=== PATIENT | male | born 1950 | race Caucasian/White ===

== ENCOUNTER 2020-04-24 14:12 | Inpatient (IN) | payer OTHER ==
[~2020-04-24] VITALS: Ht 188 cm; Wt 111.1 kg
[2020-04-24 14:13] VITALS: BP 95/49
[2020-04-24 15:45] LABS: ABSOLUTE NEUTROPHILS 9.5 thou/uL (1.4-8.2); BASOPHILS 0.4 % (0.0-2.0); EOSINOPHILS 0.1 % (0.0-3.0); HEMATOCRIT 41.6 % (42.0-52.0); HEMOGLOBIN 13.8 gm/dL (14.0-18.0); LYMPHOCYTES 5.3 % (24.0-44.0); MCH 30.2 pg (26.0-34.0); MCHC 33.2 g/dL (28.0-37.0); MCV 90.9 fL (80.0-100.0); MONOCYTES 7.1 % (1.0-8.0); PLATELET COUNT 167 thou/uL (150-400); POLYS 87.1 % (36.0-66.0); RBC 4.58 mil/uL (4.50-6.00); RDW 14.3 % (10.5-14.5); WBC 10.9 thou/uL (4.0-11.0)
[2020-04-24 16:07] LABS: CALCIUM 9.3 mg/dL (8.5-10.1); CREATININE 1.6 mg/dL (0.7-1.3)
[2020-04-24 16:11] LABS: ALBUMIN 3.4 g/dL (3.4-5.0); DIRECT BILIRUBIN 0.3 mg/dL (<0.1-0.2); TOTAL BILIRUBIN 1.1 mg/dL (0.2-1.0); TOTAL PROTEIN 6.8 g/dL (6.4-8.2)
[2020-04-24 17:06] LABS: URINE BILIRUBIN NEGATIVE (Negative); URINE BLOOD TRACE (Negative); URINE CLARITY CLEAR; URINE COLOR YELLOW; URINE GLUCOSE-RANDOM* 3+ (Negative); URINE KETONES NEGATIVE (Negative); URINE LEUKOCYTES-REFLEX NEGATIVE (Negative); URINE NITRITE-REFLEX NEGATIVE (Negative); URINE PROTEIN (DIPSTICK) 2+ (Negative)
[2020-04-24 17:20] LABS: BACTERIA-REFLEX 1-9 Few /HPF (None Seen); CASTS None Seen /LPF (None Seen); CRYSTALS None Seen /LPF (None Seen); SQUAMOUS None Seen /LPF (0-3); URINE RBC 0-2 Rare /HPF (0-2); URINE WBC-REFLEX None Seen /HPF (0-5)
[2020-04-24] MEDS ORDERED: ALLOPURINOL 30300 M1 PO (17:43)
[2020-04-24] MEDS ORDERED: EZETIMIBE10 MG PO (17:43)
[2020-04-24] MEDS ORDERED: GLIMEPIRIDE4 MG PO (17:44)
[2020-04-24] MEDS ORDERED: LIPITOR80 MG PO (17:45)
[2020-04-24] MEDS ORDERED: METFORMIN HCL500 M3 PO (17:45)
[2020-04-24] MEDS ORDERED: PROBENECID500 MG PO (17:46)
[2020-04-24] MEDS ORDERED: INVOKANA100 MG PO (17:46)
[2020-04-24] MEDS ORDERED: PLAVIX 75 MG TA75 MG PO (17:47)
[2020-04-24] MEDS ORDERED: SYMBICORT160 MCG/4. INH (17:48)
[2020-04-24] MEDS ORDERED: BYSTOLIC10 MG PO (17:48)
[2020-04-24] MEDS ORDERED: ENTRESTO 49 MG1 EACH PO (17:48)
[2020-04-24 17:57] VITALS: BP 97/50
[2020-04-24 18:07] LABS: FOLIC ACID 18.6 ng/mL (8.6-58.9)
[2020-04-24 18:41] VITALS: BP 116/48
[2020-04-24 19:47] VITALS: BP 108/62
--- NOTE | 2020-04-24 20:27 | NUR ---
Patient arrived in the unit at 1840, report given to Night RN. Vital signs stable. To do admission education, assessment and history; admission forms to be signed as well as consults to be done. Pt to be on telemetry; night RN informed.
--- NOTE | 2020-04-25 07:17 | NUR ---
VSS-AFEBRILE. LUNGS CLEAR-ROOM AIR. C/O PAIN WITH THIRD TOE ON LEFT FOOT, WELL RELIEVED WITH PO PAIN MEDICATION. THIRD TOE ON LEFT FOOT IS BLACK, AND FRONT OF FOOT IS RED AND WARM TO TOUCH. OOB AD DANN-STEADY ON FEET. APPEARS TO HAVE PERIODS WHERE HE IS A-PACED, BUT DENIES HAVING A PACEMAKER, AND STATES HE ONLY HAS A DEFIBRILLATOR. CALLS APPROPRIATLEY FOR ANY NEEDED ASSISTANCE.
[2020-04-25 08:15] VITALS: BP 117/62
[2020-04-25 10:00] LABS: ABSOLUTE NEUTROPHILS 6.9 thou/uL (1.4-8.2); BASOPHILS 0.4 % (0.0-2.0); EOSINOPHILS 0.7 % (0.0-3.0); HEMATOCRIT 46.7 % (42.0-52.0); MCH 29.7 pg (26.0-34.0); MCHC 32.2 g/dL (28.0-37.0); MCV 92.2 fL (80.0-100.0); MONOCYTES 6.6 % (1.0-8.0); PLATELET COUNT 191 thou/uL (150-400); POLYS 83.3 % (36.0-66.0); RBC 5.07 mil/uL (4.50-6.00); RDW 14.5 % (10.5-14.5); WBC 8.2 thou/uL (4.0-11.0)
[2020-04-25 10:16] LABS: CALCIUM 9.3 mg/dL (8.5-10.1); CREATININE 1.2 mg/dL (0.7-1.3); POTASSIUM 3.9 mmol/L (3.5-5.1)
[2020-04-25 10:17] LABS: MAGNESIUM 2.1 mg/dL (1.8-2.4)
--- NOTE | 2020-04-25 11:42 | HC ---
[facility] [place] [address] [address] CONSULTATION Name: LAURYN NY Room #: 458-P ADM IN M.R.#: [id number] Admission: 04/24/20 Attend Phys: Yordy Ledesma MD Discharge: Date of : 50 Report #: [id number] THIS REPORT FOR: cc: Ethan Thompson MD, Rene P. MD Barry, Joseph W. MD ~ DATE OF SERVICE: 04/25/2020 INFECTIOUS DISEASE CONSULTATION ATTENDING PHYSICIAN: Dr. Ledesma. REASON FOR EVALUATION: Diabetic foot infection with gangrene involving the third left toe. HISTORY OF SUBJECTIVE: Chart reviewed, patient examined. This is a 70-year-old gentleman with known diabetes mellitus type 2 complicated by peripheral neuropathy, although he does have feeling, had developed a bullous lesion over the dorsal aspect of his toe. He dates early part of April. He noted he had intermittent bleeding. He was ultimately evaluated, having obtained a primary care physician and then subsequently referred to Wound Care. He was encouraged to go to the Emergency Room and was subsequently admitted. Denies any systemic illness of fever or chills. Appetite has been satisfactory. No pulmonary or gastrointestinal related complaints. Evaluation noted elevated CRP of 94.4. Arterial Doppler noted no hemodynamically significant stenosis in the femoral or popliteal arteries. Lactic acid 2.7. COVID test was negative. Chest x-ray was remarkable only for scarring. He was empirically started on therapy with ceftriaxone and vancomycin. MRI of the foot is pending. ALLERGIES: LISTED TO SHELLFISH. CURRENT MEDICATIONS: Include cyanocobalamin, glimepiride, allopurinol, labetalol, atorvastatin, clopidogrel, pantoprazole, ceftriaxone, enoxaparin, vancomycin, topical gentamicin, p.r.n. analgesics and antiemetics. SOCIAL HISTORY: Nonsmoker, no ethanol, no illicit drug use. FAMILY HISTORY: Noncontributory. REVIEW OF SYSTEMS: Otherwise, unremarkable 10-point review of systems. PHYSICAL EXAMINATION: GENERAL: He is alert, cooperative, appropriate, reasonably well nourished, not overtly distressed. VITAL SIGNS: Most recent temperature 99.5, pulse 68, respirations 18, blood [facility] [address] [place] [address] CONSULTATION Name: LAURYN NY Room #: 458-P [facility] IN [facility].#: [id number] Admission: 04/24/20 Attend Phys: Yordy Ledesma MD Discharge: Date of : 50 Report #: [id number] pressure 108/62. SKIN: Warm, dry, no rashes. HEENT: Otherwise unremarkable. Normocephalic. Extraocular muscles intact. NECK: Supple. LUNGS: Otherwise clear breath sounds. HEART: Regular. I do not appreciate a murmur. ABDOMEN: Soft, nontender, nondistended. EXTREMITIES: Left foot third toe has gangrenous changes noted in particular over the dorsal aspect. There is some moderate degree of surface inflammation signs noted over the dorsal foot. GENITOURINARY AND RECTAL: Deferred. LABORATORY DATA: Most recent lactic acid 1.6. Urinalysis unremarkable. Sed rate of 33. Electrolytes: Sodium 138, potassium 4.0, chloride 104, bicarbonate 25, BUN and creatinine 24 and 1.6, glucose of 159. Albumin of 3.4. Total protein 6.4. LFTs unremarkable. ASSESSMENT: Left third toe gangrene. The patient with diabetes mellitus, likely has some degree of vasculopathy. We will continue empiric therapy. I think it is reasonable coverage. At this point, there is no particular odor would still favor Staph or strep etiology in the setting noted evaluation ongoing including MRI, which is pending. We will monitor expectantly. Add incentive spirometry. Continue wound care as prescribed. <ELECTRONICALLY SIGNED> By: Blade Hayward MD 04/25/20 1142 0841 1111 Blade Hayward MD /nt
--- NOTE | 2020-04-25 17:29 | NUR ---
PT ASSESSED AT START OF SHIFT. DRSIvone IN THIS AM. DR. ANN REDRESSED LT FOOT. PLAN ON AMPUTATING LT 2ND TOE IN THE AM. PT IN AGREEMENT. NO LOVENOX THIS EVENING BUT TO RESUME TOMORROW EVENING. MRI TO BE DONE MONDAY NOT EMERGENCY. NO C/O PAIN. EATING AND DRINKING WELL. VOIDING PER URINAL.
[2020-04-25 19:24] VITALS: BP 123/70
[2020-04-26 06:06] LABS: ALBUMIN 2.8 g/dL (3.4-5.0); CALCIUM 8.9 mg/dL (8.5-10.1); CREATININE 0.9 mg/dL (0.7-1.3); PHOSPHORUS 3.3 mg/dL (2.6-4.7); POTASSIUM 3.7 mmol/L (3.5-5.1)
--- NOTE | 2020-04-26 06:22 | NUR ---
Pt. rested quietly during the night when checked on during frequent rounds. He did c/o right lower extremity pain and po pain med given (see emar) with some relief noted. He has been useing the urinal.
[2020-04-26 07:42] VITALS: BP 138/70
[2020-04-26 15:38] VITALS: BP 110/55
--- NOTE | 2020-04-26 19:56 | NUR ---
Assumed care of pt. at 0700. Pt. was calm and cooperative. Pt. was taken down for surgery at 0745. Pt. returned from surgery with stable vitals and no pain complaints. Wound dressing C/D/I. Pt. remains stable with no complaints of pain.
[2020-04-26 20:09] VITALS: BP 114/54
[2020-04-27 04:59] VITALS: BP 122/58
--- NOTE | 2020-04-27 05:07 | NUR ---
Pt. rested quietly at intervals during the night when checked on during frequent rounds. He did c/o pain to his left foot and po pain med given (see emar) with some relief of pain noted. Dressing to left foot is dry and intact.
--- NOTE | 2020-04-27 07:56 | HC ---
[facility] [place] [address] [place] [address] CONSULTATION Name: LAURYN NY Room #: 458-P ADM IN M.R.#: [id number] Admission: 04/24/20 Attend Phys: Yordy Ledesma MD Discharge: Date of : 50 Report #: [id number] THIS REPORT FOR: cc: Ethan Thompson MD, Rene P. MD Althoff,Dustin Heredia MD ~ DATE OF SERVICE: 04/25/2020 CHIEF COMPLAINT: Necrotic left third toe and cellulitis. HISTORY OF PRESENT ILLNESS: This is a 70-year-old male patient who I saw in the clinic on the , he had been referred by Dr. Ethan Thompson after an initial examination by Dr. Thompson's office. He has had chronic ulceration to the left third toe. It has progressed to being more necrotic and has developed cellulitis. I recommended admission. He came in later in the evening for such through the Emergency Department. He denies significant pain. He is mainly concerned with caring for his who has glioblastoma multiforme and he is the primary caregiver for. He does understand the need for surgical intervention. PAST MEDICAL HISTORY: Positive for history of diabetes mellitus and congestive heart failure. MEDICATIONS: Include allopurinol, Azactam, glimepiride, atorvastatin, metformin, probenecid, Invokana, Plavix, Entresto, Bystolic, Symbicort. ALLERGIES: SHELLFISH. SOCIAL HISTORY: Negative for alcohol or tobacco use. FAMILY HISTORY: Noncontributory. REVIEW OF SYSTEMS: CONSTITUTIONAL: The patient denies fever, chills, or weight loss. NEUROLOGICAL: The patient denies focal weakness, numbness or tingling. EYES: The patient denies visual changes, redness, or drainage. ENT: The patient denies earache, nasal drainage or sore throat. CARDIOVASCULAR: The patient denies chest pain, palpitations or diaphoresis. PULMONARY: The patient denies cough or shortness of breath. GASTROINTESTINAL: The patient denies abdominal pain. ORTHOPEDIC: The patient notes the ulceration on the left third toe as well as the redness on his left foot. Other systems in a 14-point review of systems are negative. PHYSICAL EXAMINATION: VITAL SIGNS: At this time include temperature 36.6, pulse 59, respiratory rate [facility] [address] [place] [address] CONSULTATION Name: LAURYN NY Room #: [address] [place] [address] IN M.R.#: [id number] Admission: 04/24/20 Attend Phys: Yordy Ledesma MD Discharge: Date of : 50 Report #: [id number], blood pressure 117/62. GENERAL: This is a chronically ill-appearing male patient who appears to be in minimal distress. HEENT: Head normocephalic. Nose and throat are clear. NECK: Supple. LUNGS: Clear. HEART: Regular. ABDOMEN: Bowel sounds present. EXTREMITIES: Demonstrate necrosis and dry gangrene to the tip of the left third toe. There is a proximal ulcer on the dorsal aspect of the third toe. It is cellulitic and cellulitis extends to the majority of the dorsal aspect of the left foot. Distal pulses are diminished. NEUROLOGIC: The patient is alert and oriented and appropriate. LABORATORY DATA: Include sodium 141, potassium 3.9, chloride 102, CO2 of 28, BUN 17, creatinine 1.2, glucose 116. White blood cell count 8.2 with hemoglobin 15.0. Arterial Dopplers demonstrated an occluded anterior tibial artery on the left side, otherwise good flow. CLINICAL IMPRESSION: 1. Gangrenous and ulcerated left third toe. 2. Type 2 diabetes mellitus. 3. Cellulitis to the dorsal aspect of left foot. 4. Diabetic peripheral neuropathy. 5. Peripheral arterial disease by Doppler and physical examination. RECOMMENDATIONS: At this point in time, we reviewed the Doppler findings with Dr. Ma who feels the patient should have adequate blood flow for healing and no intervention for revascularization would be required. Discussed this with Dr. Norberto Delcid who has seen the patient as well. We will plan for amputation of the third toe. He will receive intravenous antibiotic therapy. Continue with local wound care. In the meantime, I appreciate being asked to see him in consultation. <ELECTRONICALLY SIGNED> By: Dustin Leroy MD 04/27/20 0756 1636 2131 Dustin Leroy MD /nt
[2020-04-27 08:17] VITALS: BP 118/57
[2020-04-27] MEDS ORDERED: KEFLEX500 M1 PO (09:20)
[2020-04-27] MEDS ORDERED: HYDROCODON-ACE1 EAC7 PO (09:20)
--- NOTE | 2020-04-27 14:37 | NUR ---
PT ADMITTED RELATED TO LEFT FOOT, THIRD TOE INFECTION. CM REVIEWED CHART AND SPOKE WITH CARE TEAM. CM CALLED AND SPOKE WITH PT OVER THE PHONE THIS DAY. PT INDICATED HE RESIDES AT HOME AND THAT HE HAD BEEN PROVIDING CARE TO HIS WHO IS ILL DETECTIVE PRECINCT. HE INDICATED THAT HIS SPOUSE HAD SERVICES THROUGH [facility]. HE WAS AWARE THAT HE WOULD LIKELY NEED HH SERVICES [place] AND WANTED TO SEE IF HE COULD USE THEM TOO. CM CALLED [facility] AT AND SPOKE WITH [employer] AND THEY INDICATED THEY AREN'T A MEDICARE PROVIDER FOR HH SERVICES. CM TO NOTIFY PT. AWAITING DIRECTION IF PT WILL NEED HOME IV ABX. CM TO FOLLOW INDICATED WITH [place] PLANNING.
--- NOTE | 2020-04-27 19:43 | NUR ---
PT A&OX4, VSS, DENIES PAIN. IV PATENT RIGHT FOREARM. PATIENT TOLERATING DIET. PATIENT STEADY ON FEET, 50%WEIGHT BEARING LEFT FOOT. DRESSING CHANGE COMPLETED BY DOCTOR. DOCTOR TITA GAVE VERBAL ORDER FOR POST OP SHOE. MRI DENIED TODAY. NO SIGNS OF DISTRESS. WILL CONTINUE TO MONITOR.
[2020-04-27 20:04] VITALS: BP 119/60
--- NOTE | 2020-04-28 07:01 | NUR ---
Pt. rested quietly at intervals during the night when checked on during frequent rounds. He did c/o pain to his left lower extremity and po pain med given (see emar) with some relief noted. Dressing to left lower ex- tremity is dry and intact.
[2020-04-28 09:25] VITALS: BP 139/65
[2020-04-28] MEDS ORDERED: ZYVOX600 MG PO (11:39)
--- NOTE | 2020-04-28 12:19 | NUR ---
CM CALLED AND SPOKE WITH PT THIS AM. HE WAS AWARE THAT [facility] DOESN'T PROVIDE HH SERVICES. HE WAS RECEPTIVE TO CM SENDING REFERRAL TO PROVIDERS THAT GO TO THE SERVICE ARE HE WILL BE GOIGN TO UPON [place]. PT INDICATED HE WILL BE GOING TO STAY AT HIS DTR'S FARM IN [place], [place] [address] [place] [address]. CM SEARCHED PROVIDERS IN [place] [address]. [facility], [facility], AND [facility] CAME UP. [facility] INDICATED THEY WERE CLOSED IN THAT AREA. [facility] INDICATED THEY DIDN'T GO THERE, AND [facility] INDICATED THEY WERE PRETTY FULL AND DIDN'T THINK THEY WOULD BE ABLE TO STAFF HIM. CM CALLED A BUNCH OF OTHER PROVIERS AND NONE WENT TO SERVICE AREA. CM CALLED [facility] BACK AND ASKED FOR THEM TO PLEASE REVIEW REFERRAL. CM FAXED TO THEM. PT WAS ISSUED A FWW BY PROVIDER [facility], WE ARE AWAITING A POST OP SHOE FROM . TP WAS SWITCHED TO [facility]. CM TO CONTINEU TO TRY TO FIND HH FOR [place] THIS DAY. CM TO FOLLOW INDICATED WITH [place] PLANNING.
[2020-04-28 12:45] VITALS: BP 139/65
[2020-04-28 13:34] VITALS: BP 139/65
--- NOTE | 2020-04-28 14:06 | NUR ---
CM HEARD BACK FROM INTAKE AT [facility] AND THEY INDICATED THAT THEY CAN ACCEPT PT FOR SERVICES AND THAT THEY WILL DO A SOC MONDAY. CM NOTIFIED PT. HE IS AWARE AND AGREEABLE. CM CALLED AND SPOKE WITH PT'S DTR SHE INDICATED UNDERSTANDIGN AND AGREEMENT. PT'S SON IN LAW IS TO PROVIDE TRANSPORT HOME THIS DAY AROUND 1600. PT HAD FWW AND POST OP SHOE. NO OTHER CM ITNERVENTION INDICATED. CASE CLOSED.
--- NOTE | 2020-04-28 17:35 | NUR ---
PT A&OX4, VSS, DENIES PAIN. DOCTOR IN TO COMPLETE WOUND CARE. PATIENT HAS POST OP SHOE AND WORKED WITH PT. IV REMOVED AND PATIENT COMMUNICATES UNDERSTANDING OF DISCHARGE ORDERS. PATIENT HAS NEW WALKER AND ALL BELONGINGS WITH PATIENT. NO SIGNS OF DISTRESS. WILL CONTINUE TO MONITOR.
--- NOTE | 2020-04-29 13:36 | O ---
[facility] [place] [address] [place] [address] OPERATIVE REPORT Name: LAURYN NY Room #: 458-P [facility] IN M.R.#: [id number] Admission: 04/24/20 Attend Phys: Yordy Ledesma MD Discharge: 04/28/20 Date of : 50 Report #: [id number] THIS REPORT FOR: cc: Ethan Thompson MD, Rene P. MD Hanon, Daniel R. DPM ~ DATE OF SERVICE: 04/26/2020 SURGEON: Norberto Delcid DPM PREOPERATIVE DIAGNOSIS: Osteomyelitis, left third toe with gangrene. POSTOPERATIVE DIAGNOSIS: Osteomyelitis, left third toe with gangrene. PROCEDURE: Amputation, left third toe with primary closure. ANESTHESIA: General LMA. INJECTABLES: 20 mL of 0.5% Marcaine plain. HEMOSTASIS: Left ankle pneumatic tourniquet at 275 mmHg. SPECIMENS: Left third toe. CULTURES: 1. Bone, aerobic and anaerobic, left third toe. 2. Soft tissue, aerobic and anaerobic, left third toe. SPECIMENS: Left third toe. SUTURES: 3-0 nylon. COMPLICATIONS: None. ESTIMATED BLOOD LOSS: Minimal. DESCRIPTION OF PROCEDURE: The patient was brought to the OR and placed on the table supine with induction of general LMA anesthesia. A well-padded left ankle pneumatic tourniquet was placed. A local anesthetic block was given to the distal left foot and the extremity was prepped and draped aseptically. It was exsanguinated with inflation of the tourniquet. A #10 blade was used to create a circumferential incision around the left third toe at the level of the MTP joint. The toe was disarticulated at the joint and electrocautery was utilized for hemostasis. There was soft tissue infection at this level, although the distal third metatarsal head had normal appearance with no signs of lysis to the [address] [address] OPERATIVE REPORT Name: LAURYN NY Room #: 458-P DIS IN Vern.#: [id number] Admission: 04/24/20 Attend Phys: Yordy Ledesma MD Discharge: 04/28/20 Date of : 50 Report #: [id number] cartilage or bone. There was no purulence or abscess at this level. I performed extensive soft tissue debridement surrounding the MTP area to remove the extensor and flexor tendons as well as infected soft tissue. Electrocautery was used for hemostasis. The skin margins were remodeled and cautery was utilized for hemostasis. The wound was flushed with sterile saline, dried and then closed with 3-0 nylon in simple interrupted fashion over 0.25 inch Nu Gauze drain. The tourniquet was deflated with normal vascular return. Sterile bandage was placed with Xeroform, 4 x 4s, Kerlix and Alan bandage. The patient left the OR with no pain or complications noted. <ELECTRONICALLY SIGNED> By: Norberto Delcid DPM 04/29/20 5539 1214 1232 Norberto Delcid DPM /shaila
--- NOTE | 2020-04-29 13:36 | HC ---
[facility] [place] [place] [address] CONSULTATION Name: LAURYN NY Room #: 458-P [facility] IN M.R.#: [id number] Admission: 04/24/20 Attend Phys: Yordy Ledesma MD Discharge: 04/28/20 Date of : 50 Report #: [id number] THIS REPORT FOR: cc: Ethan Thompson MD, Rene P. MD Hanon, Daniel R. DPM ~ DATE OF SERVICE: 04/25/2020 ADMISSION DIAGNOSIS: Osteomyelitis, left third toe. CHIEF COMPLAINT AND HISTORY OF PRESENT ILLNESS: A 70-year-old male admitted for worsening infection to left third toe, complicated by type 2 diabetes mellitus. He has distal sensory neuropathy, and developed a wound to the dorsal aspect of the left third toe several weeks ago while wearing some new shoes. He relates worsening erythema, edema, drainage and pain to the left third toe and distal forefoot. He was initially evaluated by Dr. Dustin Leroy at the [facility] yesterday, and sent to the Emergency Department for direct admission. He has remained afebrile, currently on parenteral vancomycin and ceftriaxone. Wound cultures are pending. Blood cultures negative x 2 thus far. Arterial Doppler ultrasound shows triphasic waveforms to the left leg, transitioning to monophasic at the popliteal region. The posterior tibial and anterior tibial arteries are monophasic without evidence of discrete stenosis. The patient is scheduled today for MRI of the left foot and foot radiographs. He has been evaluated by Dr. Blade Hayward, Infectious Disease physician. LABORATORY DATA: Platelets 167. BUN 24, creatinine 1.6. PHYSICAL EXAMINATION: VITAL SIGNS: Temperature 97.8, pulse 59, respirations 18, blood pressure 117/62. EXTREMITIES: There is helen gangrene of the entire left third toe with ulceration of the dorsal PIP joint. The toe is purple in color and mushy to the touch. There is obvious necrosis of the distal toe with no capillary refill. There is advanced erythema to the left dorsal forefoot surrounding overlying the second, third and fourth metatarsal regions. The adjacent toes appear uninvolved with no open lesions. There is no fluctuance or crepitation to the left forefoot. There is no pallor or cyanosis to the foot other than the obvious gangrenous changes to the third toe. I am unable to palpate the left dorsalis pedis or posterior tibial arteries. There is hemosiderosis with +3 nonpitting edema to the left lower extremity, and +2 nonpitting to the right. There is negative Homans' and Bazan's sign bilaterally. No left calf pain or popliteal adenopathy or tenderness. Toenails are slightly dystrophic without paronychia. IMPRESSION: Osteomyelitis with gangrene, left third toe. Type [address] [address] CONSULTATION Name: LAURYN NY Room #: 458-P DIS IN M.R.#: [id number] Admission: 04/24/20 Attend Phys: Yordy Ledesma MD Discharge: 04/28/20 Date of : 50 Report #: [id number] mellitus, diabetic peripheral sensory neuropathy, hypertension, and renal insufficiency. PLAN: The patient requires amputation of the left third toe. I will perform this tomorrow morning. We will submit bone and soft tissue cultures as well as the toe for pathology. We will keep the patient n.p.o. past midnight and hold his enoxaparin. I will hold his Plavix. The patient is to remain nonweightbearing and elevate the leg. Maximize glycemic control and nutrition. <ELECTRONICALLY SIGNED> By: Norberto Delcid DPM 04/29/20 1336 1258 17 Norberto Delcid DPM /nt
== END 2020-04-28 17:30 | disposition home health service (06) | DRG 853 ==
LOC: ER 14:12 → 4W 18:02 → EROBS 18:02 → 4W 18:55
PROVIDERS: Hospitalist; Nurse Practitioner; ADMIT Hospitalist; ATTEND Hospitalist
PROC: 0Y6U0Z0 Detachment at Left 3rd Toe, Complete, Open Approach (ICD-10-PCS; principal; 2020-04-26)
DX: A41.9 Sepsis, unspecified organism (principal); N17.0 Acute kidney failure with tubular necrosis; E11.52 Type 2 diabetes mellitus with diabetic peripheral angiopathy with gangrene; I96 Gangrene, not elsewhere classified; L97.929 Non-pressure chronic ulcer of unspecified part of left lower leg with unspecified severity; L03.116 Cellulitis of left lower limb; M86.8X7 Other osteomyelitis, ankle and foot; E44.0 Moderate protein-calorie malnutrition; I42.9 Cardiomyopathy, unspecified; I77.1 Stricture of artery; E78.5 Hyperlipidemia, unspecified; I25.10 Atherosclerotic heart disease of native coronary artery without angina pectoris; E11.42 Type 2 diabetes mellitus with diabetic polyneuropathy; E11.69 Type 2 diabetes mellitus with other specified complication; I50.9 Heart failure, unspecified; I11.0 Hypertensive heart disease with heart failure; I99.8 Other disorder of circulatory system; Z20.828 Contact with and (suspected) exposure to other viral communicable diseases; Z79.01 Long term (current) use of anticoagulants; Z91.013 Allergy to seafood; Z79.84 Long term (current) use of oral hypoglycemic drugs; Z79.899 Other long term (current) drug therapy; Z95.5 Presence of coronary angioplasty implant and graft; Z68.31 Body mass index [BMI] 31.0-31.9, adult
CPT/HCPCS: 10045; 50101; 50386; 50445; 56527; 57091; 57178; 70005

== ENCOUNTER → 2020-04-24 | Outpatient (CLI) | payer OTHER ==
[~2020-04-24] MED LIST: ALLOPURINOL 30300 M1 PO; BYSTOLIC10 MG PO; ENTRESTO 49 MG1 EACH PO; EZETIMIBE10 MG PO; GLIMEPIRIDE4 MG PO; INVOKANA100 MG PO; LIPITOR80 MG PO; METFORMIN HCL500 M3 PO; PLAVIX 75 MG TA75 MG PO; PROBENECID500 MG PO; SYMBICORT160 MCG/4. INH
== END ==
LOC: HYPER 10:18
PROVIDERS: ATTEND Emergency Medicine Emergency Medical Services
DX: E11.628 Type 2 diabetes mellitus with other skin complications (principal); L03.032 Cellulitis of left toe; L03.116 Cellulitis of left lower limb; E11.51 Type 2 diabetes mellitus with diabetic peripheral angiopathy without gangrene; I25.10 Atherosclerotic heart disease of native coronary artery without angina pectoris; M10.00 Idiopathic gout, unspecified site; J45.909 Unspecified asthma, uncomplicated; F41.9 Anxiety disorder, unspecified; F32.9 Major depressive disorder, single episode, unspecified; Z79.84 Long term (current) use of oral hypoglycemic drugs; Z95.5 Presence of coronary angioplasty implant and graft; Z95.0 Presence of cardiac pacemaker

== ENCOUNTER → 2020-05-11 | Outpatient (CLI) | payer OTHER ==
[~2020-05-11] MED LIST changes: +HYDROCODON-ACE1 EAC7 PO; +KEFLEX500 M1 PO; +ZYVOX600 MG PO
== END ==
LOC: HYPER 10:25
PROVIDERS: ATTEND Emergency Medicine Emergency Medical Services
DX: T87.81 Dehiscence of amputation stump (principal); E11.621 Type 2 diabetes mellitus with foot ulcer; L97.522 Non-pressure chronic ulcer of other part of left foot with fat layer exposed; E11.51 Type 2 diabetes mellitus with diabetic peripheral angiopathy without gangrene; I25.10 Atherosclerotic heart disease of native coronary artery without angina pectoris; J45.909 Unspecified asthma, uncomplicated; M10.00 Idiopathic gout, unspecified site; F41.9 Anxiety disorder, unspecified; F32.9 Major depressive disorder, single episode, unspecified; Z79.84 Long term (current) use of oral hypoglycemic drugs; Z95.5 Presence of coronary angioplasty implant and graft; Z95.0 Presence of cardiac pacemaker; Y83.5 Amputation of limb(s) as the cause of abnormal reaction of the patient, or of later complication, without mention of misadventure at the time of the procedure

== ENCOUNTER → 2020-05-25 | Outpatient (CLI) | payer OTHER | LOC: HYPER 10:28 | PROVIDERS: ATTEND Emergency Medicine Emergency Medical Services | DX: T87.81 Dehiscence of amputation stump (principal); E11.621 Type 2 diabetes mellitus with foot ulcer; L97.522 Non-pressure chronic ulcer of other part of left foot with fat layer exposed; E11.51 Type 2 diabetes mellitus with diabetic peripheral angiopathy without gangrene; I25.10 Atherosclerotic heart disease of native coronary artery without angina pectoris; J45.909 Unspecified asthma, uncomplicated; M10.00 Idiopathic gout, unspecified site; F41.9 Anxiety disorder, unspecified; F32.9 Major depressive disorder, single episode, unspecified; Z79.84 Long term (current) use of oral hypoglycemic drugs; Y83.5 Amputation of limb(s) as the cause of abnormal reaction of the patient, or of later complication, without mention of misadventure at the time of the procedure ==

== ENCOUNTER → 2020-06-02 | Outpatient (CLI) | payer OTHER | LOC: SJCVCIMAG 08:30 | PROVIDERS: ATTEND Nuclear Medicine Nuclear Cardiology | DX: S98.132D Complete traumatic amputation of one left lesser toe, subsequent encounter (principal); I70.203 Unspecified atherosclerosis of native arteries of extremities, bilateral legs; I25.10 Atherosclerotic heart disease of native coronary artery without angina pectoris; E11.51 Type 2 diabetes mellitus with diabetic peripheral angiopathy without gangrene; M10.9 Gout, unspecified; I25.5 Ischemic cardiomyopathy; Z98.61 Coronary angioplasty status; Z95.810 Presence of automatic (implantable) cardiac defibrillator; Z72.89 Other problems related to lifestyle; Z79.899 Other long term (current) drug therapy; Z79.84 Long term (current) use of oral hypoglycemic drugs; X58.XXXD Exposure to other specified factors, subsequent encounter ==

== ENCOUNTER → 2020-06-09 | Outpatient (CLI) | payer OTHER ==
[~2020-06-09] MED LIST changes: +FUROSEMIDE 20 M20 MG PO
== END ==
LOC: HYPER 09:00
PROVIDERS: ATTEND Emergency Medicine
DX: T87.81 Dehiscence of amputation stump (principal); E11.621 Type 2 diabetes mellitus with foot ulcer; L97.522 Non-pressure chronic ulcer of other part of left foot with fat layer exposed; E11.51 Type 2 diabetes mellitus with diabetic peripheral angiopathy without gangrene; I25.10 Atherosclerotic heart disease of native coronary artery without angina pectoris; J45.909 Unspecified asthma, uncomplicated; M10.00 Idiopathic gout, unspecified site; F41.9 Anxiety disorder, unspecified; F32.9 Major depressive disorder, single episode, unspecified; Z79.84 Long term (current) use of oral hypoglycemic drugs; Y83.5 Amputation of limb(s) as the cause of abnormal reaction of the patient, or of later complication, without mention of misadventure at the time of the procedure

== ENCOUNTER → 2020-06-11 | Outpatient (CLI) | payer OTHER ==
[~2020-06-11] VITALS: Ht 188 cm; Wt 111.1 kg
[2020-06-11 07:24] VITALS: BP 106/55
[2020-06-11 07:35] LABS: HEMATOCRIT 43.1 % (42.0-52.0); MCH 29.1 pg (26.0-34.0); MCHC 32.5 g/dL (28.0-37.0); MCV 89.4 fL (80.0-100.0); RBC 4.82 mil/uL (4.50-6.00); RDW 16.5 % (10.5-14.5); WBC 6.9 thou/uL (4.0-11.0)
[2020-06-11 08:09] LABS: CALCIUM 9.7 mg/dL (8.5-10.1); CREATININE 1.2 mg/dL (0.7-1.3); POTASSIUM 4.7 mmol/L (3.5-5.1)
== END | disposition home or self-care (01) ==
LOC: CATH 06:40
PROVIDERS: ATTEND Nuclear Medicine Nuclear Cardiology
DX: I70.248 Atherosclerosis of native arteries of left leg with ulceration of other part of lower leg (principal); L97.929 Non-pressure chronic ulcer of unspecified part of left lower leg with unspecified severity; I70.1 Atherosclerosis of renal artery; I11.0 Hypertensive heart disease with heart failure; I50.9 Heart failure, unspecified; I25.10 Atherosclerotic heart disease of native coronary artery without angina pectoris; E11.9 Type 2 diabetes mellitus without complications; I42.9 Cardiomyopathy, unspecified; I48.91 Unspecified atrial fibrillation; Z98.890 Other specified postprocedural states; Z79.899 Other long term (current) drug therapy; Z79.01 Long term (current) use of anticoagulants

== ENCOUNTER → 2020-06-18 | Outpatient (CLI) | payer OTHER ==
[~2020-06-18] VITALS: Ht 188 cm; Wt 112.0 kg
[~2020-06-18] MED LIST changes: +ASA81BEC PO; +NITROSTAT0.4 M1 PO; +TERBINAFINE15 G1 TOP
[2020-06-18 07:08] VITALS: BP 99/54
== END | disposition home or self-care (01) ==
LOC: CATH 06:33
PROVIDERS: ATTEND Nuclear Medicine Nuclear Cardiology
DX: I70.211 Atherosclerosis of native arteries of extremities with intermittent claudication, right leg (principal); I70.92 Chronic total occlusion of artery of the extremities; M79.604 Pain in right leg; I25.10 Atherosclerotic heart disease of native coronary artery without angina pectoris; E11.9 Type 2 diabetes mellitus without complications; I50.9 Heart failure, unspecified; I25.2 Old myocardial infarction; M10.9 Gout, unspecified; Z98.890 Other specified postprocedural states; Z79.899 Other long term (current) drug therapy; Z79.82 Long term (current) use of aspirin; I70.91 Generalized atherosclerosis

== ENCOUNTER → 2020-06-22 | Outpatient (CLI) | payer OTHER | LOC: HYPER 10:24 | PROVIDERS: ATTEND Emergency Medicine Emergency Medical Services | DX: T87.81 Dehiscence of amputation stump (principal); E11.621 Type 2 diabetes mellitus with foot ulcer; L89.892 Pressure ulcer of other site, stage 2; L89.891 Pressure ulcer of other site, stage 1; L97.522 Non-pressure chronic ulcer of other part of left foot with fat layer exposed; E11.51 Type 2 diabetes mellitus with diabetic peripheral angiopathy without gangrene; I25.10 Atherosclerotic heart disease of native coronary artery without angina pectoris; M10.00 Idiopathic gout, unspecified site; L84 Corns and callosities; E11.628 Type 2 diabetes mellitus with other skin complications; J45.909 Unspecified asthma, uncomplicated; F41.9 Anxiety disorder, unspecified; F32.9 Major depressive disorder, single episode, unspecified; Z95.820 Peripheral vascular angioplasty status with implants and grafts; Z79.84 Long term (current) use of oral hypoglycemic drugs; Z95.5 Presence of coronary angioplasty implant and graft; Z95.0 Presence of cardiac pacemaker; Y83.5 Amputation of limb(s) as the cause of abnormal reaction of the patient, or of later complication, without mention of misadventure at the time of the procedure ==

== ENCOUNTER → 2020-07-06 | Outpatient (CLI) | payer OTHER | LOC: HYPER 12:47 | PROVIDERS: ATTEND Emergency Medicine | DX: T87.81 Dehiscence of amputation stump (principal); E11.621 Type 2 diabetes mellitus with foot ulcer; L89.892 Pressure ulcer of other site, stage 2; L97.526 Non-pressure chronic ulcer of other part of left foot with bone involvement without evidence of necrosis; L84 Corns and callosities; E11.51 Type 2 diabetes mellitus with diabetic peripheral angiopathy without gangrene; E11.40 Type 2 diabetes mellitus with diabetic neuropathy, unspecified; I25.10 Atherosclerotic heart disease of native coronary artery without angina pectoris; M10.00 Idiopathic gout, unspecified site; J45.909 Unspecified asthma, uncomplicated; F41.9 Anxiety disorder, unspecified; F32.9 Major depressive disorder, single episode, unspecified; Z95.820 Peripheral vascular angioplasty status with implants and grafts; Y83.5 Amputation of limb(s) as the cause of abnormal reaction of the patient, or of later complication, without mention of misadventure at the time of the procedure ==

== ENCOUNTER → 2020-07-08 | Outpatient (CLI) | payer OTHER | LOC: HYPER 13:33 | PROVIDERS: ATTEND Emergency Medicine | DX: T87.81 Dehiscence of amputation stump (principal); E11.621 Type 2 diabetes mellitus with foot ulcer; L89.892 Pressure ulcer of other site, stage 2; L97.526 Non-pressure chronic ulcer of other part of left foot with bone involvement without evidence of necrosis; L84 Corns and callosities; E11.51 Type 2 diabetes mellitus with diabetic peripheral angiopathy without gangrene; E11.40 Type 2 diabetes mellitus with diabetic neuropathy, unspecified; I25.10 Atherosclerotic heart disease of native coronary artery without angina pectoris; M10.00 Idiopathic gout, unspecified site; J45.909 Unspecified asthma, uncomplicated; F41.9 Anxiety disorder, unspecified; F32.9 Major depressive disorder, single episode, unspecified; Z95.820 Peripheral vascular angioplasty status with implants and grafts; Y83.5 Amputation of limb(s) as the cause of abnormal reaction of the patient, or of later complication, without mention of misadventure at the time of the procedure ==

== ENCOUNTER → 2020-07-15 | Outpatient (CLI) | payer OTHER | LOC: HYPER 09:23 | PROVIDERS: ATTEND Emergency Medicine | DX: T87.81 Dehiscence of amputation stump (principal); E11.621 Type 2 diabetes mellitus with foot ulcer; L89.892 Pressure ulcer of other site, stage 2; L97.526 Non-pressure chronic ulcer of other part of left foot with bone involvement without evidence of necrosis; L84 Corns and callosities; E11.51 Type 2 diabetes mellitus with diabetic peripheral angiopathy without gangrene; E11.40 Type 2 diabetes mellitus with diabetic neuropathy, unspecified; I25.10 Atherosclerotic heart disease of native coronary artery without angina pectoris; M10.00 Idiopathic gout, unspecified site; J45.909 Unspecified asthma, uncomplicated; F41.9 Anxiety disorder, unspecified; F32.9 Major depressive disorder, single episode, unspecified; Z95.820 Peripheral vascular angioplasty status with implants and grafts; Y83.5 Amputation of limb(s) as the cause of abnormal reaction of the patient, or of later complication, without mention of misadventure at the time of the procedure ==

== ENCOUNTER → 2020-07-22 | Outpatient (CLI) | payer OTHER | LOC: HYPER 09:43 | PROVIDERS: ATTEND Emergency Medicine | DX: T87.81 Dehiscence of amputation stump (principal); E11.621 Type 2 diabetes mellitus with foot ulcer; L97.526 Non-pressure chronic ulcer of other part of left foot with bone involvement without evidence of necrosis; E11.51 Type 2 diabetes mellitus with diabetic peripheral angiopathy without gangrene; E11.40 Type 2 diabetes mellitus with diabetic neuropathy, unspecified; I25.10 Atherosclerotic heart disease of native coronary artery without angina pectoris; M10.00 Idiopathic gout, unspecified site; L84 Corns and callosities; J45.909 Unspecified asthma, uncomplicated; F41.9 Anxiety disorder, unspecified; F32.9 Major depressive disorder, single episode, unspecified; Z95.820 Peripheral vascular angioplasty status with implants and grafts; Z79.84 Long term (current) use of oral hypoglycemic drugs; Z79.899 Other long term (current) drug therapy; Y83.5 Amputation of limb(s) as the cause of abnormal reaction of the patient, or of later complication, without mention of misadventure at the time of the procedure ==

== ENCOUNTER → 2020-07-28 | Outpatient (CLI) | payer OTHER | LOC: HYPER 09:43 | PROVIDERS: ATTEND Specialist | DX: T87.81 Dehiscence of amputation stump (principal); E11.621 Type 2 diabetes mellitus with foot ulcer; I70.245 Atherosclerosis of native arteries of left leg with ulceration of other part of foot; L97.526 Non-pressure chronic ulcer of other part of left foot with bone involvement without evidence of necrosis; E11.69 Type 2 diabetes mellitus with other specified complication; M86.372 Chronic multifocal osteomyelitis, left ankle and foot; E11.51 Type 2 diabetes mellitus with diabetic peripheral angiopathy without gangrene; E11.40 Type 2 diabetes mellitus with diabetic neuropathy, unspecified; I25.10 Atherosclerotic heart disease of native coronary artery without angina pectoris; L84 Corns and callosities; M10.00 Idiopathic gout, unspecified site; J45.909 Unspecified asthma, uncomplicated; F41.9 Anxiety disorder, unspecified; F32.9 Major depressive disorder, single episode, unspecified; Z95.820 Peripheral vascular angioplasty status with implants and grafts; Z79.84 Long term (current) use of oral hypoglycemic drugs; Z79.899 Other long term (current) drug therapy; Y83.5 Amputation of limb(s) as the cause of abnormal reaction of the patient, or of later complication, without mention of misadventure at the time of the procedure ==

== ENCOUNTER → 2020-08-05 | Outpatient (CLI) | payer OTHER | LOC: HYPER 09:13 | PROVIDERS: ATTEND Emergency Medicine | DX: T87.81 Dehiscence of amputation stump (principal); E11.621 Type 2 diabetes mellitus with foot ulcer; I70.245 Atherosclerosis of native arteries of left leg with ulceration of other part of foot; L97.526 Non-pressure chronic ulcer of other part of left foot with bone involvement without evidence of necrosis; E11.69 Type 2 diabetes mellitus with other specified complication; M86.372 Chronic multifocal osteomyelitis, left ankle and foot; E11.51 Type 2 diabetes mellitus with diabetic peripheral angiopathy without gangrene; E11.40 Type 2 diabetes mellitus with diabetic neuropathy, unspecified; I25.10 Atherosclerotic heart disease of native coronary artery without angina pectoris; L84 Corns and callosities; M10.00 Idiopathic gout, unspecified site; J45.909 Unspecified asthma, uncomplicated; F41.9 Anxiety disorder, unspecified; F32.9 Major depressive disorder, single episode, unspecified; Z95.820 Peripheral vascular angioplasty status with implants and grafts; Z79.84 Long term (current) use of oral hypoglycemic drugs; Z79.899 Other long term (current) drug therapy; Y83.5 Amputation of limb(s) as the cause of abnormal reaction of the patient, or of later complication, without mention of misadventure at the time of the procedure ==

== ENCOUNTER → 2020-08-19 | Outpatient (CLI) | payer OTHER | LOC: HYPER 14:01 | PROVIDERS: ATTEND Emergency Medicine | DX: T87.81 Dehiscence of amputation stump (principal); E11.621 Type 2 diabetes mellitus with foot ulcer; I70.245 Atherosclerosis of native arteries of left leg with ulceration of other part of foot; L97.522 Non-pressure chronic ulcer of other part of left foot with fat layer exposed; E11.69 Type 2 diabetes mellitus with other specified complication; M86.372 Chronic multifocal osteomyelitis, left ankle and foot; E11.51 Type 2 diabetes mellitus with diabetic peripheral angiopathy without gangrene; E11.40 Type 2 diabetes mellitus with diabetic neuropathy, unspecified; I25.10 Atherosclerotic heart disease of native coronary artery without angina pectoris; L84 Corns and callosities; M10.00 Idiopathic gout, unspecified site; J45.909 Unspecified asthma, uncomplicated; F41.9 Anxiety disorder, unspecified; F32.9 Major depressive disorder, single episode, unspecified; Z95.820 Peripheral vascular angioplasty status with implants and grafts; Z79.84 Long term (current) use of oral hypoglycemic drugs; Z79.899 Other long term (current) drug therapy; Y83.5 Amputation of limb(s) as the cause of abnormal reaction of the patient, or of later complication, without mention of misadventure at the time of the procedure ==

== ENCOUNTER 2020-09-11 13:45 | Day surgery (SDC) | payer OTHER ==
[~2020-09-11] VITALS: Ht 188 cm; Wt 108.4 kg
--- NOTE | ~2020-09-11 | O ---
[facility] [place] [place] [address] OPERATIVE REPORT Name: LAURYN NY Room #: DEP [facility] [place]#: [id number] Admission: 09/11/20 Attend Phys: Norberto Delcid DPM Discharge: 09/11/20 Date of : 50 Report #: [id number] THIS REPORT FOR: cc: Ethan Thompson MD, Rene P. MD Hanon, Daniel R. DPM ~ DOC #: [id number] Norberto Delcid DPM DATE OF SERVICE: 09/11/2020 PREOPERATIVE DIAGNOSIS: Osteomyelitis, left fifth metatarsal with nonhealing ulceration. POSTOPERATIVE DIAGNOSIS: Osteomyelitis, left fifth metatarsal with nonhealing ulceration. PROCEDURE: 1. Resection of left distal fifth metatarsal and amputation of fifth toe with primary closure. 2. Pedicled skin flap, left foot. 3. Incision and drainage, left foot. ANESTHESIA: MAC. INJECTABLES: 30 mL of 0.5% Marcaine plain and 1% lidocaine plain. HEMOSTASIS: Left ankle pneumatic tourniquet at 250 mmHg. ESTIMATED BLOOD LOSS: Minimal. SPECIMENS: Left distal fifth metatarsal and fifth toe. CULTURES: 1. Bone, left fifth metatarsal, aerobic/anaerobic. 2. Soft tissue, left foot, aerobic/anaerobic. SUTURES: 3-0 nylon. COMPLICATIONS: None. DESCRIPTION OF PROCEDURE: The patient was brought to the OR with induction of MAC anesthesia, well-padded left ankle pneumatic tourniquet was placed. A local anesthetic block was given. The left extremity was prepped and draped aseptically. After exsanguination and inflation of the tourniquet, a #10 scalpel was used to create a dorsolateral incision over the fifth metatarsal and circumferentially around the fifth toe. Electrocautery was utilized for [address] [address] OPERATIVE REPORT Name: LAURYN NY Room #: DEP [facility] [place]#: [id number] Admission: 09/11/20 Attend Phys: Norberto Delcid DPM Discharge: 09/11/20 Date of : 50 Report #: [id number] hemostasis and the fifth toe was disarticulated at the MTP joint. The base of the proximal phalanges appeared discolored consistent with bone necrosis. I dissected the soft tissue and periosteum off the distal fifth metatarsal and the bone was yellow and soft consistent with osteomyelitis. Soft tissue surrounding the distal fifth metatarsal was discolored and boggy due to infection and inflammation. I transected the fifth metatarsal at the proximal aspect where the bone was hard and appeared clinically viable. A portion of bone was sent for culture and the remaining fifth metatarsal and toe sent for pathology. Surrounding soft tissue was sent for soft tissue culture. I performed extensive debridement of the operative wound with Metzenbaum and scalpel to remove devitalized tissue and tendons. The skin margin was remodeled as well. The wound was flushed with sterile saline and dried. The plantar lateral skin flap was mobilized dorsomedially and sutured with 3-0 nylon in simple interrupted fashion. The foot was cleansed, dried and dressed with Betadine-soaked Adaptic, fluffs, ABDs, Kerlix and Alan bandage. The tourniquet was deflated with normal vascular return to the foot. The patient left the OR with no pain or complications noted. FORTUNATO Anderson/SUN By: 1437 1614 Norberto Delcid DPM /nt
[~2020-09-11 13:45] MED LIST changes: +ATORVASTATIN CA80 MG PO; +DOXYCYCLINE 10100 MG PO; +METFORMIN HCL500 M1 PO; +ZETIA10 MG PO; +ZYLOPRIM300 MG PO
[2020-09-11 15:10] LABS: HEMATOCRIT 42.7 % (42.0-52.0); HEMOGLOBIN 13.9 gm/dL (14.0-18.0)
[2020-09-11 15:18] LABS: CALCIUM 8.8 mg/dL (8.5-10.1); CREATININE 1.1 mg/dL (0.7-1.3)
[2020-09-11 15:24] LABS: ALBUMIN 3.3 g/dL (3.4-5.0); TOTAL BILIRUBIN 0.8 mg/dL (0.2-1.0); TOTAL PROTEIN 6.9 g/dL (6.4-8.2)
--- NOTE | 2020-09-11 15:55 | NUR ---
PICC PLACED IN PRE OP
[2020-09-11 16:07] VITALS: BP 108/66
[2020-09-11 17:32] VITALS: BP 108/66
[2020-09-14] MEDS ORDERED: ERTAPENEM1 GM IV (14:26)
--- NOTE | 2020-09-15 18:06 | PATH ---
[facility] [address] [place] [address] PATHOLOGY RPT PROCEDURE Name: REY PAIGE Room #: [facility] M.R.#: [id number] Admission: 09/11/20 Date of : 50 Discharge: 09/11/20 Report #: [id number] Path Case #: [id number] [facility] Accession Number: [id number] . 01 Material submitted: . toe - LEFT FIFTH TOE AND METATARSAL. Modifiers: left, fifth . 01 Clinical history: . OSTEOMYELITIS OF THE LEFT 5TH METATARSAL . . 02 Diagnosis: Toe, left fifth toe and metatarsal, amputation: - Marked acute inflammation with abscess formation within subcutaneous tissue extending into underlying bone. - Acute osteomyelitis. - Bone margin on intact toe showing acute inflammation. - Separate additional fragment of bone showing viable and unremarkable bone at one end. . (IUV:mml; 09/15/2020) QLM 09/15/2020 1728 Local . 02 Electronically signed: . Daiana Krueger MD, Pathologist NPI- [id number] . 01 Gross description: . The specimen is received in formalin, labeled "Rey Paige, left fifth toe and metatarsal". Received is an amputated digit measuring 5.2 x 2.7 x 2.0 cm in greatest dimensions. The bone margin is smooth and concave in appearance, consistent with disarticulation. The bone and soft tissue margins are inked black. The nail is present displaying a pale rosenbaum and grossly unremarkable appearance. The epidermal surface is pale rosenbaum and wrinkled in appearance with no grossly distinct nodules or lesions. A longitudinal cross-section through the bone margin is submitted in cassette A1, following decalcification. . Also received within the specimen container is an additional fragment of metatarsal displaying one blunt, transected margin, and one jagged margin, measuring 3.9 x 1.5 x 1.1 cm in greatest dimensions. The transected margin is inked black. A full-thickness cross-section submitted from transected to jagged margins is submitted in cassettes A2 and A3, following decalcification. (CAA; 09/14/2020) QAC/QAC 09/14/2020 1657 Local . 02 [place] [address] PATHOLOGY RPT PROCEDURE Name: REY PAIGE Room #: [facility] M.R.#: [id number] Admission: 09/11/20 Date of : 50 Discharge: 09/11/20 Report #: [id number] Path Case #: [id number] Pathologist provided ICD-10: L98.9, L03.032, M86.172 . 02 CPT . 028546, 158137 Specimen Comment: A courtesy copy of this report has been sent to [phone] Specimen Comment: [phone] Specimen Comment: Report sent to / DR TREVIZO Performed at: [address], [place] [id number] MD Vincent Mario MD Phone: [phone] Performed at: [address] [id number] MD Daiana Krueger MD Phone: [phone]
== END 2020-09-11 17:32 | disposition home or self-care (01) ==
LOC: OR 13:45 → TBA 13:45 → OR 16:34
PROVIDERS: ATTEND Podiatrist Foot & Ankle Surgery
DX: M86.172 Other acute osteomyelitis, left ankle and foot (principal); L97.529 Non-pressure chronic ulcer of other part of left foot with unspecified severity; L98.9 Disorder of the skin and subcutaneous tissue, unspecified; L03.032 Cellulitis of left toe; I25.10 Atherosclerotic heart disease of native coronary artery without angina pectoris; E11.9 Type 2 diabetes mellitus without complications; I50.9 Heart failure, unspecified; E78.00 Pure hypercholesterolemia, unspecified; J45.909 Unspecified asthma, uncomplicated; M10.9 Gout, unspecified; I42.9 Cardiomyopathy, unspecified; Z98.890 Other specified postprocedural states; Z79.899 Other long term (current) drug therapy; Z20.822 Contact with and (suspected) exposure to COVID-19; Z88.8 Allergy status to other drugs, medicaments and biological substances
CPT/HCPCS: 27000; 50010; 50386; 50951; 56527; 57091; 57178; 62110; 62900

== ENCOUNTER 2020-09-12 14:02 | Emergency (ER) | payer OTHER ==
[~2020-09-12] VITALS: Ht 188 cm; Wt 108.9 kg
[2020-09-12 16:33] VITALS: BP 108/55
[2020-09-14] MEDS ORDERED: ERTAPENEM1 GM IV (14:26)
== END 2020-09-12 16:34 | disposition home or self-care (01) ==
LOC: ER 14:02
DX: Z51.81 Encounter for therapeutic drug level monitoring (principal); M79.672 Pain in left foot; R11.0 Nausea; I25.10 Atherosclerotic heart disease of native coronary artery without angina pectoris; E11.51 Type 2 diabetes mellitus with diabetic peripheral angiopathy without gangrene; E78.00 Pure hypercholesterolemia, unspecified; J45.909 Unspecified asthma, uncomplicated; Z89.422 Acquired absence of other left toe(s); I50.9 Heart failure, unspecified; Z79.899 Other long term (current) drug therapy; Z95.5 Presence of coronary angioplasty implant and graft; Z98.890 Other specified postprocedural states; Z79.82 Long term (current) use of aspirin; Z88.1 Allergy status to other antibiotic agents; Z91.013 Allergy to seafood

== ENCOUNTER 2020-09-13 12:13 | Emergency (ER) | payer OTHER ==
[~2020-09-13] VITALS: Ht 188 cm; Wt 108.9 kg
[2020-09-13 13:52] VITALS: BP 114/60
[2020-09-14] MEDS ORDERED: ERTAPENEM1 GM IV (14:26)
== END 2020-09-13 13:53 | disposition home or self-care (01) ==
LOC: ER 12:13
DX: Z51.89 Encounter for other specified aftercare (principal); I50.9 Heart failure, unspecified; J45.909 Unspecified asthma, uncomplicated; E11.51 Type 2 diabetes mellitus with diabetic peripheral angiopathy without gangrene; I25.10 Atherosclerotic heart disease of native coronary artery without angina pectoris; E78.00 Pure hypercholesterolemia, unspecified; Z95.5 Presence of coronary angioplasty implant and graft; Z89.422 Acquired absence of other left toe(s); Z98.890 Other specified postprocedural states; Z90.89 Acquired absence of other organs; Z79.899 Other long term (current) drug therapy; Z79.82 Long term (current) use of aspirin; Z88.1 Allergy status to other antibiotic agents; Z91.013 Allergy to seafood

== ENCOUNTER → 2020-09-14 | Outpatient (CLI) | payer OTHER ==
[~2020-09-14] MED LIST changes: +ERTAPENEM1 GM IV
[2020-09-14 14:20] VITALS: BP 100/51
--- NOTE | 2020-09-14 14:57 | NUR ---
HERE FOR CONTINUED OUTPATIENT IV ANTIBIOTIC MANAGEMENT, 3RD DOSE OF ERTAPENEM AFTER HE HAD AN ALLERGIC REACTION TO CEFTRIAXONE ON MONDAY (DAY OF SURGERY). REPORTS DOING WELL, FEELING WELL. MILD LOOSE STOOLS. NAUSEA FROM YESTERDAY IS RESOLVED AT THE MOMENT. PLAN IS TO CONTINUE DAILY IV ANTIOBIOTICS AT HOME BUT DELIVERY WAS NOT GOING TO HAPPEN UNTIL THIS EVENING SO PT CAME HERE FOR TODAY'S INFUSION TO AVOID GAP IN TREATMENT. SPOKE WITH ROBINA AT [facility] AND CONFIRMED WITH PT THAT DRUG SHOULD BE DELIVERED TONITE. SPOKE WITH AIMEE WITH DR. ROJAS TO CONFIRM THAT PLAN WAS TO CONTINUE ON ERTAPENEM. LEFT MESSAGE WITH DR. ANN TO CONFIRM PLAN BUT DID NOT HEAR BACK OF YET TODAY. REVIEWED MAMAGEMENT OF PICC WITH PT, WHAT TO EXPECT FROM HOME HEALTH, WHAT TO REPORT TO CARE PROVIDER. CONFIRMED THAT HE HAS APPT SET UP WITH DR. ANN THIS WEEK. ENCOURAGED PT TO MAKE AN APPT TO SEE DR. ROJAS BY END OF THIS WEEK OR BEGINNING OF NEXT WEEK. ON LICENSE OF [facility], NURSE HERNANDEZ, IS SCHEDULED TO SEE PT TOMORROW TO ASSIST WITH [facility]. PICC SITE LOOKS GOOD AND HAS BRISK BLOOD RETURN. DISMISSED PT IN STABLE CONDITION.
== END ==
LOC: OPONC 13:52
PROVIDERS: ATTEND Specialist
DX: M86.8X7 Other osteomyelitis, ankle and foot (principal)
CPT/HCPCS: 95000

== ENCOUNTER → 2020-09-23 | Outpatient (CLI) | payer OTHER | LOC: SJCVCIMAG 12:56 | PROVIDERS: ATTEND Internal Medicine Cardiovascular Disease | DX: I65.23 Occlusion and stenosis of bilateral carotid arteries (principal); I70.201 Unspecified atherosclerosis of native arteries of extremities, right leg; R94.31 Abnormal electrocardiogram [ECG] [EKG]; I44.0 Atrioventricular block, first degree; E11.51 Type 2 diabetes mellitus with diabetic peripheral angiopathy without gangrene; I25.5 Ischemic cardiomyopathy; I25.10 Atherosclerotic heart disease of native coronary artery without angina pectoris; M10.9 Gout, unspecified; Z95.810 Presence of automatic (implantable) cardiac defibrillator; Z95.5 Presence of coronary angioplasty implant and graft; Z95.820 Peripheral vascular angioplasty status with implants and grafts; Z88.8 Allergy status to other drugs, medicaments and biological substances; Z79.82 Long term (current) use of aspirin; Z79.84 Long term (current) use of oral hypoglycemic drugs; Z79.899 Other long term (current) drug therapy ==

== ENCOUNTER → 2020-09-24 | Outpatient (CLI) | payer OTHER ==
[2020-09-24 12:22] VITALS: BP 92/46
--- NOTE | 2020-09-24 12:55 | NUR ---
IN FOR 1ST DOSE OF DAPTOMYCIN FOR OSTEOMYELITIS OF LT THIRD TOE. PICC LINE WNL WITH A GOOD BLOOD RETURN. TOLERATED INFUSION WITHOUT INCIDENT. OBSERVED FOR 20 MINUTES WITH NO ADVERSE REACTION NOTED. DISMISSED IN STABLE CONDITION. WILL DO INFUSIONS AT HOME WITH HOME HEALTH.
== END ==
LOC: OPONC 08:20
PROVIDERS: ATTEND Specialist
DX: M86.8X7 Other osteomyelitis, ankle and foot (principal)
CPT/HCPCS: 95000

== ENCOUNTER → 2020-10-21 | Outpatient (CLI) | payer OTHER | LOC: SJCVCIMAG 09:49 | PROVIDERS: ATTEND Internal Medicine Cardiovascular Disease | DX: I34.0 Nonrheumatic mitral (valve) insufficiency (principal); I27.20 Pulmonary hypertension, unspecified; I49.3 Ventricular premature depolarization; I25.10 Atherosclerotic heart disease of native coronary artery without angina pectoris; I42.9 Cardiomyopathy, unspecified; E11.51 Type 2 diabetes mellitus with diabetic peripheral angiopathy without gangrene; I73.9 Peripheral vascular disease, unspecified; I25.2 Old myocardial infarction; Z79.84 Long term (current) use of oral hypoglycemic drugs; Z95.810 Presence of automatic (implantable) cardiac defibrillator; Z79.82 Long term (current) use of aspirin; Z79.899 Other long term (current) drug therapy ==

== ENCOUNTER → 2021-04-20 | Outpatient (CLI) | payer OTHER | LOC: SJCVCIMAG 14:18 | PROVIDERS: ATTEND Internal Medicine Cardiovascular Disease | DX: R94.31 Abnormal electrocardiogram [ECG] [EKG] (principal); I70.203 Unspecified atherosclerosis of native arteries of extremities, bilateral legs; I49.3 Ventricular premature depolarization; I77.9 Disorder of arteries and arterioles, unspecified; I25.10 Atherosclerotic heart disease of native coronary artery without angina pectoris; E11.9 Type 2 diabetes mellitus without complications; E78.00 Pure hypercholesterolemia, unspecified; I65.29 Occlusion and stenosis of unspecified carotid artery; M10.9 Gout, unspecified; Z95.810 Presence of automatic (implantable) cardiac defibrillator; Z72.89 Other problems related to lifestyle; Z79.82 Long term (current) use of aspirin; Z79.84 Long term (current) use of oral hypoglycemic drugs; Z79.899 Other long term (current) drug therapy; Z91.013 Allergy to seafood; Z88.8 Allergy status to other drugs, medicaments and biological substances ==